=== PATIENT | female | born 1940 | race Caucasian/White ===

== ENCOUNTER 2019-03-01 04:14 | Inpatient (IN) | payer MEDICARE, MEDICAID ==
[~2019-03-01] VITALS: Ht 157.5 cm; Wt 63.5 kg
[2019-03-01] MEDS ORDERED: MAGNESIUM/ALUMINUM HYDROXIDE/SIMETHICONE 30ML UDC PO STA (04:50)
[2019-03-01] MEDS ORDERED: SODIUM CHLORIDE 0.9% 1,000 ML IV ONE (04:50)
[2019-03-01] MEDS ORDERED: ONDANSETRON HCL 4MG/2ML INJ IV STA (04:50)
[2019-03-01] MEDS ORDERED: FAMOTIDINE 20MG/2ML VIAL IV STA (04:50)
[2019-03-01] MEDS ORDERED: MORPHINE SULFATE 4 MG/ML CPJ (NOT FOR IM USE) IV STA (04:50)
[2019-03-01 05:13] LABS: BASOPHILS % 0.4 % (0.0-2.0); EOSINOPHILS % 0.9 % (0.0-5.0); HEMATOCRIT. 39.2 % (36.0-48.0); HEMOGLOBIN. 13.5 g/dL (12.0-16.0); LYMPHOCYTES % 23.7 % (20.0-50.0); MEAN CORPUSCULAR HEMOGLOBIN 29.4 pg (28.0-32.0); MEAN CORPUSCULAR VOLUME 85.4 fL (81.0-99.0); MEAN PLATELET VOLUME 8.3 fl (7.4-10.4); MONOCYTES % 5.3 % (2.0-8.0); NEUTROPHILS % 69.7 % (40.0-76.0); PLATELET 258 x1000/uL (130-400); RED BLOOD CELL COUNT 4.59 mill/uL (4.2-5.4)
[2019-03-01 05:22] LABS: CHLORIDE 91 mEq/L (98-107)
[2019-03-01 05:55] LABS: CLARITY URINE CLEAR (CLEAR); COLOR URINE YELLOW (YELLOW); KETONES URINE NEGATIVE (NEGATIVE); LEUKOCYTE ESTERASE URINE TRACE (NEGATIVE); NITRITE URINE NEGATIVE (NEGATIVE); OCCULT BLOOD URINE NEGATIVE (NEGATIVE); PH URINE 8.5 (4.5-8.0); PROTEIN URINE NEGATIVE (NEGATIVE); SPECIFIC GRAVITY URINE 1.007 (1.005-1.030)
[2019-03-01] MEDS ORDERED: LEVOFLOXACIN 500MG PREMIX 100 ML IV SCH (09:45)
[2019-03-01] MEDS ORDERED: SODIUM CHLORIDE 0.9% 1000ML BAG (SEPSIS BOLUS) IV ONE (09:45)
[2019-03-01] MEDS ORDERED: ACETAMINOPHEN 325MG TABLET PO PRN (09:45)
[2019-03-01] MEDS ORDERED: GUAIFENESIN 200MG/10ML SUGAR FREE UDC PO PRN (09:45)
[2019-03-01] MEDS ORDERED: LORAZEPAM 0.5MG TABLET PO PRN (09:45)
[2019-03-01] MEDS ORDERED: ZOLPIDEM TARTRATE 5MG TABLET PO PRN (09:45)
[2019-03-01] MEDS ORDERED: CLONIDINE 0.1MG TABLET PO PRN (09:45)
[2019-03-01] MEDS ORDERED: MAGNESIUM/ALUMINUM HYDROXIDE/SIMETHICONE 30ML UDC PO PRN (09:45)
[2019-03-01] MEDS ORDERED: IPRATROPIUM/ALBUTEROL 0.5-3(2.5)MG/3ML NEB NEB PRN (09:45)
[2019-03-01] MEDS: ENOXAPARIN 40MG/0.4ML SYR SUBCUT SCH (10:00)
[2019-03-01] MEDS ORDERED: LEVOFLOXACIN 500MG PREMIX 100 ML IV ONE (10:00)
[2019-03-01 14:13] LABS: *AMPHETAMINES SCREEN URINE NEGATIVE (NEGATIVE); *BARBITURATES SCREEN URINE NEGATIVE (NEGATIVE); *BENZODIAZEPINES SCREEN URINE NEGATIVE (NEGATIVE); *COCAINE SCREEN URINE NEGATIVE (NEGATIVE)
[2019-03-01 14:14] LABS: CANNABINOID URINE SCREEN NEGATIVE (NEGATIVE); METHADONE URINE SCREEN NEGATIVE (NEGATIVE); OPIATES URINE SCREEN PRESUMTIVE POSITIVE (NEGATIVE); PHENCYCLIDINE URINE SCREEN NEGATIVE (NEGATIVE)
[2019-03-01 14:47] LABS: CREATINE KINASE 49 IU/L (26-192)
[2019-03-01 14:48] LABS: CREATINE KINASE MB FRACTION 1.3 ng/mL (0.5-3.6)
[2019-03-01] MEDS ORDERED: DEXTROSE 50% WATER 50ML SYRINGE IV PRN (15:30)
[2019-03-01] MEDS ORDERED: NITROGLYCERIN 0.4MG TABLET SL SL PRN (15:30)
[2019-03-01 15:50] VITALS: BP 142/87
[2019-03-01 16:00] VITALS: BP 142/87
[2019-03-01] MEDS ORDERED: LINA5TAB PO (16:35)
[2019-03-01] MEDS ORDERED: METF-416 PO (16:35)
[2019-03-01] MEDS ORDERED: APIX5TAB MT (16:35)
[2019-03-01] MEDS ORDERED: LOSA50TA41 MT (16:35)
[2019-03-01] MEDS ORDERED: METO25TA6 MT (16:35)
[2019-03-01] MEDS ORDERED: VANCOMYCIN 1 G PREMIX 200 ML IV NR (17:00)
[2019-03-01] MEDS: INSULIN LISPRO 100 UNITS/ML SUBCUT SCH ×2 (17:15→20:43)
[2019-03-01] MEDS: BLOOD SUGAR DIAGNOSTIC STRIP TEST SCH ×2 (17:40→20:42)
[2019-03-01 19:22] LABS: FOLIC ACID (FOLATE) SERUM >20 ng/mL ng/mL (>5.38)
[2019-03-01 19:42] LABS: VITAMIN B12 SERUM > 2000.0 pg/mL (211-911)
[2019-03-01 20:00] VITALS: BP 133/68
[2019-03-01] MEDS: ASCORBIC ACID 500 MG TABLET PO SCH (20:39)
[2019-03-01] MEDS: FAMOTIDINE 20MG TABLET PO SCH (20:39)
[2019-03-01] MEDS: DOCUSATE SODIUM 100MG CAPSULE PO PRN (20:42)
[2019-03-01] MEDS: ONDANSETRON HCL 4MG/2ML INJ IV PRN (20:55)
[2019-03-01] MEDS: TRAMADOL 50MG TABLET PO PRN (20:58)
[2019-03-01 23:39] LABS: CREATINE KINASE 48 IU/L (26-192)
[2019-03-01 23:40] LABS: CREATINE KINASE MB FRACTION < 1.0 ng/mL (0.5-3.6)
[2019-03-02] VITALS: BP 131/80
[2019-03-02] MEDS: KETOROLAC 15MG/ML VIAL IV PRN ×3 (00:19→21:14)
[2019-03-02 04:00] VITALS: BP 112/71
[2019-03-02] MEDS: BLOOD SUGAR DIAGNOSTIC STRIP TEST SCH ×4 (06:45→21:02)
[2019-03-02] MEDS: INSULIN LISPRO 100 UNITS/ML SUBCUT SCH ×4 (06:46→21:00)
[2019-03-02 08:00] VITALS: BP 117/76
[2019-03-02] MEDS: ASCORBIC ACID 500 MG TABLET PO SCH ×2 (08:02→21:13)
[2019-03-02] MEDS: ZINC SULFATE 220 MG ( 50 ) CAPSULE PO SCH (08:02)
[2019-03-02] MEDS: DOCUSATE SODIUM 100MG CAPSULE PO PRN (08:02)
[2019-03-02] MEDS: ASPIRIN 325MG EC TABLET PO SCH (08:02)
[2019-03-02] MEDS: ENOXAPARIN 40MG/0.4ML SYR SUBCUT SCH (08:03)
[2019-03-02] MEDS: LEVOFLOXACIN 250MG PREMIX 50 ML IV SCH (10:34)
[2019-03-02] MEDS ORDERED: LACTULOSE 20G/30ML UDC PO SCH (11:00)
[2019-03-02] MEDS: VANCOMYCIN 750 MG PREMIX 150 ML IV SCH (11:56)
[2019-03-02 12:00] VITALS: BP 120/70
[2019-03-02 16:00] VITALS: BP 115/62
[2019-03-02] MEDS: FAMOTIDINE 20MG TABLET PO SCH (16:31)
[2019-03-02] MEDS ORDERED: LACTULOSE 20G/30ML UDC PO PRN (18:00)
[2019-03-02 20:00] VITALS: BP 130/77
[2019-03-03] VITALS: BP 124/71
[2019-03-03 04:00] VITALS: BP 127/76
[2019-03-03] MEDS: KETOROLAC 15MG/ML VIAL IV PRN ×2 (04:32→14:29)
[2019-03-03] MEDS: VANCOMYCIN 750 MG PREMIX 150 ML IV SCH ×2 (04:33→20:36)
[2019-03-03] MEDS: BLOOD SUGAR DIAGNOSTIC STRIP TEST SCH ×4 (06:05→20:36)
[2019-03-03] MEDS: INSULIN LISPRO 100 UNITS/ML SUBCUT SCH ×4 (06:45→20:37)
[2019-03-03 08:00] VITALS: BP 132/72
[2019-03-03] MEDS: ASPIRIN 325MG EC TABLET PO SCH (08:52)
[2019-03-03] MEDS: ZINC SULFATE 220 MG ( 50 ) CAPSULE PO SCH (08:52)
[2019-03-03] MEDS: ASCORBIC ACID 500 MG TABLET PO SCH ×2 (08:52→20:36)
[2019-03-03] MEDS: ONDANSETRON HCL 4MG/2ML INJ IV PRN (08:53)
[2019-03-03] MEDS: ENOXAPARIN 40MG/0.4ML SYR SUBCUT SCH (08:54)
[2019-03-03] MEDS: PREGABALIN 50 MG CAPSULE PO SCH ×2 (11:14→20:36)
[2019-03-03] MEDS: LEVOFLOXACIN 250MG PREMIX 50 ML IV SCH (11:19)
[2019-03-03 12:00] VITALS: BP 137/74
[2019-03-03 15:43] LABS: BASOPHILS % 0.4 % (0.0-2.0); EOSINOPHILS % 3.2 % (0.0-5.0); HEMATOCRIT. 36.8 % (36.0-48.0); HEMOGLOBIN. 12.7 g/dL (12.0-16.0); LYMPHOCYTES % 29.7 % (20.0-50.0); MEAN CORPUSCULAR HEMOGLOBIN 29.6 pg (28.0-32.0); MEAN CORPUSCULAR VOLUME 85.9 fL (81.0-99.0); MEAN PLATELET VOLUME 8.8 fl (7.4-10.4); MONOCYTES % 5.2 % (2.0-8.0); NEUTROPHILS % 61.5 % (40.0-76.0); PLATELET 243 x1000/uL (130-400); RED BLOOD CELL COUNT 4.28 mill/uL (4.2-5.4); RED CELL DISTRIBUTION WIDTH 14.6 % (11.6-14.6)
[2019-03-03 15:52] LABS: CHLORIDE 104 mEq/L (98-107)
[2019-03-03 15:55] LABS: AMYLASE 61 IU/L (25-115)
[2019-03-03 16:00] VITALS: BP 138/73
[2019-03-03] MEDS: FAMOTIDINE 20MG TABLET PO SCH (17:33)
[2019-03-03 20:00] VITALS: BP 132/77
[2019-03-04] VITALS: BP 118/72
[2019-03-04 04:00] VITALS: BP 130/80
[2019-03-04] MEDS: KETOROLAC 15MG/ML VIAL IV PRN ×2 (05:50→18:00)
[2019-03-04] MEDS: BLOOD SUGAR DIAGNOSTIC STRIP TEST SCH ×4 (06:03→20:42)
[2019-03-04] MEDS: INSULIN LISPRO 100 UNITS/ML SUBCUT SCH ×4 (06:04→20:42)
[2019-03-04 07:16] LABS: BASOPHILS % 0.5 % (0.0-2.0); EOSINOPHILS % 4.1 % (0.0-5.0); HEMATOCRIT. 34.6 % (36.0-48.0); LYMPHOCYTES % 39.9 % (20.0-50.0); MEAN CORPUSCULAR VOLUME 86.4 fL (81.0-99.0); MEAN PLATELET VOLUME 8.7 fl (7.4-10.4); MONOCYTES % 6.9 % (2.0-8.0); NEUTROPHILS % 48.6 % (40.0-76.0); PLATELET 232 x1000/uL (130-400); RED BLOOD CELL COUNT 4.01 mill/uL (4.2-5.4); RED CELL DISTRIBUTION WIDTH 14.3 % (11.6-14.6)
[2019-03-04 08:00] VITALS: BP 148/73
[2019-03-04 08:06] LABS: CHLORIDE 108 mEq/L (98-107)
[2019-03-04 08:12] LABS: PHOSPHORUS 2.1 mg/dL (2.5-4.9)
[2019-03-04] MEDS: ASPIRIN 325MG EC TABLET PO SCH (09:06)
[2019-03-04] MEDS: ASCORBIC ACID 500 MG TABLET PO SCH ×2 (09:06→20:42)
[2019-03-04] MEDS: ZINC SULFATE 220 MG ( 50 ) CAPSULE PO SCH (09:06)
[2019-03-04] MEDS: PREGABALIN 50 MG CAPSULE PO SCH ×2 (09:07→20:42)
[2019-03-04] MEDS: LEVOFLOXACIN 250MG PREMIX 50 ML IV SCH (11:51)
[2019-03-04] MEDS: ENOXAPARIN 40MG/0.4ML SYR SUBCUT SCH (11:52)
[2019-03-04 12:00] VITALS: BP 150/72
[2019-03-04] MEDS: VANCOMYCIN 750 MG PREMIX 150 ML IV SCH (13:47)
[2019-03-04] MEDS ORDERED: POTASSIUM PHOS,M-BASIC-D-BASIC 10 MMOL in DEXT 5% WATER 246.6667 ML IV NR (14:00)
[2019-03-04 16:00] VITALS: BP 140/78
[2019-03-04] MEDS: FAMOTIDINE 20MG TABLET PO SCH (17:59)
[2019-03-04 20:00] VITALS: BP 138/85
[2019-03-05] VITALS: BP 182/97
[2019-03-05] MEDS: KETOROLAC 15MG/ML VIAL IV PRN ×3 (00:13→12:07)
[2019-03-05 00:59] VITALS: BP 160/80
[2019-03-05] MEDS: VANCOMYCIN 750 MG PREMIX 150 ML IV SCH (03:40)
[2019-03-05 04:00] VITALS: BP 147/74
[2019-03-05] MEDS: BLOOD SUGAR DIAGNOSTIC STRIP TEST SCH ×2 (06:02→12:04)
[2019-03-05] MEDS: INSULIN LISPRO 100 UNITS/ML SUBCUT SCH ×2 (06:02→12:05)
[2019-03-05 08:00] VITALS: BP 159/83
[2019-03-05] MEDS: ASPIRIN 325MG EC TABLET PO SCH (08:19)
[2019-03-05] MEDS: ASCORBIC ACID 500 MG TABLET PO SCH (08:19)
[2019-03-05] MEDS: ZINC SULFATE 220 MG ( 50 ) CAPSULE PO SCH (08:19)
[2019-03-05] MEDS: PREGABALIN 50 MG CAPSULE PO SCH (08:19)
[2019-03-05] MEDS: ENOXAPARIN 40MG/0.4ML SYR SUBCUT SCH (08:20)
[2019-03-05] MEDS: TRAMADOL 50MG TABLET PO PRN (10:30)
[2019-03-05] MEDS ORDERED: LEVOFLOXACIN 250MG TABLET PO SCH (11:00)
[2019-03-05 12:14] VITALS: BP 142/71
[2019-03-05 12:19] VITALS: BP 142/71
== END 2019-03-05 14:30 | disposition home health service (06) | DRG 391 ==
LOC: ER 04:14 → 5WST 05:19 → SUPCPDRO 09:42 → ENRESERV 13:50
PROVIDERS: ADMIT Internal Medicine; ATTEND Internal Medicine
DX: K29.70 Gastritis, unspecified, without bleeding (principal); R65.20 Severe sepsis without septic shock; A41.9 Sepsis, unspecified organism; E87.1 Hypo-osmolality and hyponatremia; E44.0 Moderate protein-calorie malnutrition; E11.65 Type 2 diabetes mellitus with hyperglycemia; I10 Essential (primary) hypertension; K59.00 Constipation, unspecified; M54.30 Sciatica, unspecified side; Z85.028 Personal history of other malignant neoplasm of stomach; Z87.11 Personal history of peptic ulcer disease; Z90.49 Acquired absence of other specified parts of digestive tract; Z90.710 Acquired absence of both cervix and uterus; Z86.73 Personal history of transient ischemic attack (TIA), and cerebral infarction without residual deficits; Z88.8 Allergy status to other drugs, medicaments and biological substances; Z68.25 Body mass index [BMI] 25.0-25.9, adult
CPT/HCPCS: 36415; 71045; 74018; 74176; 80053; 80061; 80202; 80305; 81003; 82150; 82550; 82553; 82607; 82746; 82962; 83036; 83540; 83550; 83605; 83735; 84100; 84484; 85025; 93005; 93306; 93970; 97162; 99285; J1650; J1885; J1956; J2270; J2405; J3370; J3490; J7030; J7060